=== PATIENT | female | born 1970 | race Asian ===

== ENCOUNTER 2021-06-11 14:07 | Emergency (ER) | payer SELFPAY ==
[~2021-06-11] VITALS: Ht 160 cm; Wt 113.6 kg
--- NOTE | 2021-06-11 14:54 | PHYS DOC ---
Past Medical History Past Medical History: Diabetes-Type II General Adult EDM: Chief Complaint: CONSTIPATION HPI: HPI: Patient is a 51 year old female with history of diabetes type 2 presented today complaining of constipation for 9 days. Patient states she took a stool softener yesterday and had a small hard bowel movement today. Denies any nausea, vomiting. States she has abdominal bloating. Historian was patient using the niece as lang interpreter for [place] Review of Systems: Review of Systems: Constitutional: Denies fever or chills. [] Eyes: Denies change in visual acuity. [] HENT: Denies nasal congestion or sore throat. [] Respiratory: Denies cough or shortness of breath. [] Cardiovascular: Denies chest pain or edema. [] GI: Reports abdominal bloating with constipation, denies nausea, vomiting, bloody stools or diarrhea. [] : Denies dysuria. [] Musculoskeletal: Denies back pain or joint pain. [] Integument: Denies rash. [] Neurologic: Denies headache, focal weakness or sensory changes. [] Psychiatric: Denies depression or anxiety. [] Heart Score: C/O Chest Pain: N/A Risk Factors: Risk Factors: DM, Current or recent (<one month) smoker, HTN, HLP, family history of CAD, obesity. Risk Scores: Score 0 - 3: 2.5% MACE over next 6 weeks - Discharge Home Score 4 - 6: 20.3% MACE over next 6 weeks - Admit for Clinical Observation Score 7 - 10: 72.7% MACE over next 6 weeks - Early Invasive Strategies Physical Exam: PE: Constitutional: Well developed, well nourished, no acute distress, non-toxic appearance. [] HENT: Normocephalic, atraumatic, bilateral external ears normal, oropharynx moist, no oral exudates, nose normal. [] Eyes: PERRLA, EOMI, conjunctiva normal, no discharge. [] Neck: Normal range of motion, no tenderness, supple, no stridor. [] Cardiovascular:Heart rate regular rhythm, no murmur [] Lungs & Thorax: Bilateral breath sounds clear to auscultation [] Abdomen: Bowel sounds normal, soft, no tenderness, no masses, no pulsatile masses. [] Skin: Warm, dry, no erythema, no rash. [] Back: No tenderness, no CVA tenderness. [] Extremities: No tenderness, no cyanosis, no clubbing, ROM intact, no edema. [] Neurologic: Alert and oriented X 3, normal motor function, normal sensory function, no focal deficits noted. [] Psychologic: Affect normal, judgement normal, mood normal. [] EKG: EKG: [] Radiology/Procedures: Radiology/Procedures: []PROCEDURE: ABDOMEN SUPINE & UPRIGHT EXAMINATION: XR ABDOMEN 2V CLINICAL HISTORY: Constipation for 9 days TECHNIQUE: XR ABDOMEN 2V COMPARISON: None FINDINGS/ IMPRESSION: Nonobstructive bowel gas pattern with stool throughout the colon. No evidence of pneumoperitoneum. No suspicious abdominal calcifications. Thoracolumbar degenerative changes. Electronically signed by: Gomez De Santiago DO (06/11/2021 3:49 PM) [id number] DICTATED and SIGNED BY: GOMEZ DE SANTIAGO DO DATE: 06/11/21 [id number] 0 Course & Med Decision Making: Course & Med Decision Making Pertinent Labs and Imaging studies reviewed. (See chart for details) This is a 51-year-old female patient presenting to the ED today complaining of constipation for 9 days, had a small BM today after taking colace yesterday. Acute abdominal series noted for constipation. Patient was given Dulcolax and mag citrate in the ED. Educated on constipation management and prevention. Discharge to home. Robertoon Disclaimer: Valentino Disclaimer: This electronic medical record was generated, in whole or in part, using a voice recognition dictation system. Departure Departure Impression: Primary Impression: Constipation Qualified Codes: K59.00 - Constipation, unspecified Disposition: HOME / SELF CARE / HOMELESS Condition: STABLE Patient Instructions: Constipation, Adult, [id number] Additional Instructions: You were evaluated in the emergency room for constipation. Take the prescribed medications as ordered. Please increase your dietary fiber intake as well as water intake to 64 ounces a day. Take MiraLAX every day. Follow-up with your doctor in 1 week Scripts Docusate Sodium (COLACE) 100 Mg Capsule 1 CAP PO BID for 30 Days, #60 CAP 0 Refills Prov: DOMO MICHELLE APRN 06/11/21 Polyethylene Glycol 3350 (MIRALAX) 119 Gm Powder 17 GM PO DAILY for constipation, #255 GM 0 Refills dissolve in water Prov: DOMO MICHELLE APRN 06/11/21 Magnesium Citrate (MAGNESIUM CITRATE) 296 Ml Solution 296 ML PO ONCE, #296 ML Prov: DOMO MICHELLE APRN 06/11/21 DOMO MICHELLE APRN Jun 11, 2021 14:54
[2021-06-11 15:00] VITALS: BP 160/78
--- NOTE | 2021-06-11 15:51 | RAD ---
EXAMINATION: XR ABDOMEN 2V CLINICAL HISTORY: Constipation for 9 days TECHNIQUE: XR ABDOMEN 2V COMPARISON: None FINDINGS/ IMPRESSION: Nonobstructive bowel gas pattern with stool throughout the colon. No evidence of pneumoperitoneum. No suspicious abdominal calcifications. Thoracolumbar degenerative changes. Electronically signed by: Gomez Garcia DO (06/11/2021 3:49 PM) [id number]
[2021-06-11] MEDS ORDERED: BISACODYL 5 MG TABLET.DR. PO STA (15:54)
[2021-06-11] MEDS ORDERED: MAGNESIUM CITRATE 296 ML SOLUTION. PO ONE (16:00)
[2021-06-11] MEDS ORDERED: DOCU-109 PO (16:18)
[2021-06-11] MEDS ORDERED: POLY119P4 PO (16:18)
[2021-06-11] MEDS ORDERED: MAGN296S68 PO (16:18)
== END 2021-06-11 16:24 | disposition home or self-care (01) ==
LOC: ER 14:07
DX: K59.00 Constipation, unspecified (principal); E11.9 Type 2 diabetes mellitus without complications
CPT/HCPCS: 74021; 99283

== ENCOUNTER 2022-01-01 17:45 | Emergency (ER) | payer SELFPAY ==
[~2022-01-01] VITALS: Ht 160 cm; Wt 97.8 kg
[~2022-01-01 17:45] MED LIST: DOCU-109 PO; MAGN296S68 PO; POLY119P4 PO
--- NOTE | 2022-01-01 19:02 | EKG ---
[facility] [address] [place] [address] Test Date: 2022-01-01 Test Time: 18:54:20 Pat Name: ELISABETH BERKOWITZ Department: Room: Gender: F Throw Out Clerk: : [id number] Requested By: DAKOTAH GORDON Order Number: [id number] Reading MD: Andrei Hubbard Measurements Intervals [place] Rate: 81 P: -15 OK: 152 QRS: 54 QRSD: 88 T: 46 QT: 372 QTc: 438 Interpretive Statements SINUS RHYTHM MILD NON SPECIFIC ST CHANGES Electronically Signed On 01-04-2022 12:10:28 SALES AND SERVICE AGENT by Andrei Hubbard
[2022-01-01] MEDS ORDERED: NYST15PO9 TP (20:38)
--- NOTE | 2022-01-01 20:39 | PHYS DOC ---
Past Medical History Past Medical History: Diabetes-Type II (CATY GRESHAM APRN) Past Surgical History: No Surgical History (CAYT GRESHAM APRN) General Adult EDM: Chief Complaint: VAGINAL PROBLEM HPI: HPI: Patient is a 51-year-old female who presents to the emergency department for a rash to her bottom that started 1 month ago. She reports that the rash is itchy and painful. No treatment prior to arrival. Patient denies any new products, fevers, injury, nausea, vomiting, vaginal discharge, incontinence, vaginal bleeding. Patient is a diabetic. (CATY GRESHAM APRN) Review of Systems: Review of Systems: Constitutional: negative unless reported in HPI Eyes: negative unless reported in HPI HENT: negative unless reported in HPI Respiratory: negative unless reported in HPI Cardiovascular: negative unless reported in HPI GI: negative unless reported in HPI : negative unless reported in HPI Musculoskeletal: negative unless reported in HPI Integument: negative unless reported in HPI Neurologic: negative unless reported in HPI Endocrine: negative unless reported in HPI Lymphatic: negative unless reported in HPI Psychiatric: negative unless reported in HPI (CATY GRESHAM APRN) Heart Score: C/O Chest Pain: N/A Risk Factors: Risk Factors: DM, Current or recent (<one month) smoker, HTN, HLP, family history of CAD, obesity. Risk Scores: Score 0 - 3: 2.5% MACE over next 6 weeks - Discharge Home Score 4 - 6: 20.3% MACE over next 6 weeks - Admit for Clinical Observation Score 7 - 10: 72.7% MACE over next 6 weeks - Early Invasive Strategies (CATY GRESHAM APRN) Allergies: Allergies: Allergies Coded Allergies Type Severity Reaction Last Updated Verified No Known Drug Allergies 06/11/21 No (CATY GRESHAM APRN) Physical Exam: PE: Constitutional: Well developed, well nourished, no acute distress, non-toxic appearance. [] HENT: Normocephalic, atraumatic, bilateral external ears normal, oropharynx moist, no oral exudates, nose normal. [] Eyes: PERRL, EOMI, conjunctiva normal, no discharge. [] Neck: Normal range of motion, no stridor Cardiovascular: Normal peripheral perfusion Lungs & Thorax: Normal work of breathing, no tachypnea Abdomen: B obese and soft Skin: Warm, dry, patient has bright red rash to her inner thighs and perineal area consistent with candidiasis Back: Normal range of motion Extremities: No tenderness, no cyanosis, no clubbing, ROM intact, no edema. [] Neurologic: Alert and oriented X 3, normal motor function, normal sensory function, no focal deficits noted. [] Psychologic: Affect normal, judgement normal, mood normal. [] (CATY GRESHAM APRN) Current Patient Data: Vital Signs: Vital Signs Date Time Temp Pulse Resp B/P (MAP) Pulse Ox O2 Delivery O2 Flow Rate FiO2 01/01/22 18:35 98.0 85 22 184/88 (120) 95 Room Air 98.0 (CAYT GRESHAM APRN) EKG: EKG: [] (CATY GRESHAM APRN) Radiology/Procedures: Radiology/Procedures: [] (CATY GRESHAM APRN) Course & Med Decision Making: Course & Med Decision Making Pertinent Labs and Imaging studies reviewed. (See chart for details) [] Patient is presented to the emergency department for a rash to her bottom that started 1 month ago. Upon physical exam patient does have a erythematous rash to her inner thighs and perineal area that is itchy consistent with candidiasis. Patient denies any vaginal complaints and fevers. She denies any new exposures. Patient will be treated with nystatin powder. She was advised to keep that area dry. I discussed with patient all findings as well as the need to follow-up with PCP for further evaluation and treatment or return to the ER if any new or worsening symptoms. Strict return precautions were also discussed at length. Patient voiced understanding and agreement with the plan. Patient is hemodynamically stable at the time of disposition. (CATY GRESHAM APRN) Course & Med Decision Making Patients Care and treatment plan provided by ER mid-level Practitioner. I was available for consult. Patient's chart reviewed. (DAKOTAH GORDON DO) Valentino Disclaimer: Valentino Disclaimer: This electronic medical record was generated, in whole or in part, using a voice recognition dictation system. (CATY GRESHAM APRN) Departure Departure Impression: Primary Impression: Cutaneous candidiasis Disposition: HOME / SELF CARE / HOMELESS Condition: GOOD Referrals: NO PCP (PCP) Patient Instructions: Cutaneous Candidiasis Additional Instructions: You were seen in the emergency department today for rash to your bottom. This rash is consistent with a candidiasis or yeast infection. This will be treated with nystatin powder, please use this as directed. Make sure that you keep this area clean and dry. Avoid itching the area. Follow-up with your primary care provider on Tuesday regarding your ER visit. Return to the emergency department if you develop worsening of your rash, high fevers refractory to treatment, tractable nausea or vomiting, vaginal discharge or vaginal bleeding, weakness or any new or worsening concerns. Scripts Nystatin (NYSTATIN) 15 Gm Powder 1 ADAM TP BID for 7 Days, #1 BOTTLE 0 Refills apply to affected area(s) Prov: CATY GRESHAM APRN 01/01/22 CATY GRESHAM APRN Jan 01, 2022 20:39 DAKOTAH GORDON DO Jan 02, 2022 03:10
[2022-01-01 21:20] VITALS: BP 176/72
== END 2022-01-01 21:30 | disposition home or self-care (01) ==
LOC: ER 17:45
DX: B37.2 Candidiasis of skin and nail (principal); E11.9 Type 2 diabetes mellitus without complications
CPT/HCPCS: 93005; 99283